=== PATIENT | female | born 1950 | race African-American/Black ===

== ENCOUNTER 2017-11-11 12:08 | Inpatient (IN) | payer OTHER ==
[2017-11-11 15:03] VITALS: BMI 44.6
--- NOTE | 2017-11-11 15:37 | HP ---
Admission [facility] Chief Complaint: I NEED HELP TO STAY IN REHAB FOR TO STOP USING COCAINE Allergies/Adverse Reactions: Allergies Allergy/AdvReac Type Severity Reaction Status Date / Time Sulfa (Sulfonamide Allergy Severe Verified 11/11/17 15:21 Antibiotics) History of Present Illness: THIS 67 YEARS OLD FEMALE WITH MARIJUANA DEPENDENCE,SEEKING HELP STOP USING COCAINE,LAST TREATMENT IN 2017 NOT SURE ABOUT FACILITY ALLERGIC TO SULFA Exam Limitations: No Limitations - Ebola screening Have you traveled outside of the country in the last 21 days: No Have you had contact with anyone from an Ebola affected area: No Have you been sick,other than usual withdrawal symptoms: No Do you have a fever: No - Review of Systems Constitutional: No Symptoms Reported EENT: reports: No Symptoms Reported Respiratory: reports: No Symptoms reported Cardiac: reports: No Symptoms Reported (CHF HSTORY) GI: reports: No Symptoms Reported : reports: No Symptoms Reported Musculoskeletal: reports: No Symptoms Reported Integumentary: reports: No Symptoms Reported Neuro: reports: No Symptoms reported Endocrine: reports: No Symptoms Reported Hematology: reports: No Symptoms Reported Psychiatric: reports: No Sypmtoms Reported, Judgement Intact, Mood/Affect Appropiate (SCHIZOPHRENIAS) Patient History - Patient Medical History Hx Anemia: No Hx Asthma: No Hx Chronic Obstructive Pulmonary Disease (COPD): Yes (ON MED) Hx Cancer: No Hx Cardiac Disorders: No Hx Congestive Heart Failure: Yes (ON MED) Hx Hypertension: Yes (ON MED) Hx Hypercholesterolemia: Yes (ON MED) Hx Pacemaker: No HX Cerebrovascular Accident: No Hx Seizures: No Hx Dementia: No Hx Diabetes: No Hx Gastrointestinal Disorders: No Hx Liver Disease: No Hx Genitourinary Disorders: No Hx Sexually Transmitted Disorders: No Hx Renal Disease (ESRD): No Hx Thyroid Disease: No Hx Human Immunodeficiency Virus (HIV): No (LAST 2012 NEGATIVE) Hx Hepatitis C: No Hx Depression: No Hx Suicide Attempt: No Hx Bipolar Disorder: No Hx Schizophrenia: Yes Other Medical History: NO SUICIDAL,NO HOMICIDAL,SLEEP APNEA - Patient Surgical History Past Surgical History: Yes Hx Orthopedic Surgery: Yes (LEFT KNEE REPLACEMENT IN 2011) - Reproductive History Patient is a Female of Child Bearing Age (11 -55 yrs old): No Patient : No - Smoking Cessation Smoking history: Never smoked - Substance & Tx. History Hx Alcohol Use: No Hx Substance Use: Yes Substance Use Type: Cocaine, Marijuana Hx Substance Use Treatment: Yes (2017 UNKNOWN FACILITY) - Substances Abused Cocaine Route: Inhalation Frequency: Daily Amount used: 1 BAG Age of first use: 14 Date of Last Use: 11/11/17 Family Disease History - Family Disease History Family History: Denies Admission Physical Exam [facility] - Vital Signs Vital Signs: Vital Signs - 24 hr 11/11/17 15:00 Temperature 96.4 F L Pulse Rate 96 H Respiratory 20 Rate Blood Pressure 131/77 - Physical General Appearance: Yes: Within Normal Limits HEENTM: Yes: Hearing grossly Normal, Normal ENT Inspection, SIOBHAN, Pharynx Normal Respiratory: Yes: Lungs Clear, Normal Breath Sounds, No Respiratory Distress Neck: Yes: Within Normal Limits, Supple, Trachea in good position Breast: Yes: Breast Exam Deferred Cardiology: Yes: Within Normal Limits, Regular Rhythm, Regular Rate, S1, S2 Abdominal: Yes: Within Normal Limits, Normal Bowel Sounds, Flat, Soft Genitourinary: Yes: Within Normal Limits Back: Yes: Within Normal Limits Musculoskeletal: Yes: Within Normal Limits Extremities: Yes: Within Normal Limits Neurological: Yes: Within Normal Limits, 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 intact, Fully Oriented, Alert Integumentary: Yes: Within Normal Limits Lymphatic: Yes: Within Normal Limits - Diagnostic (1) Cocaine dependence Current Visit: Yes Status: Acute (2) Hypertension Current Visit: Yes Status: Acute (3) Osteoarthritis of both knees Current Visit: Yes Status: Acute (4) History of left knee replacement Current Visit: Yes Status: Acute (5) COPD (chronic obstructive pulmonary disease) Current Visit: Yes Status: Acute (6) Sleep apnea Current Visit: Yes Status: Acute (7) Obesity Current Visit: Yes Status: Acute Cleared for Admission [facility] - Detox or Rehab Claeared for Rehab Admission: Yes [facility] Breath Alcohol Content Breath Alcohol Content: 0 Urine Pregancy Test - Result Urine Test Results: Negative- NO Line Present Urine Drug Screen - Results Drug Screen Negative: No Urine Drug Screen Results: BUBBA-Cocaine, OPI-Opiates Inpatient Rehab Admission - Initial Determination Are CD services needed?: Yes Free of communicable disease: Yes Not in need of hospitalization: Yes - Rehab Admission Criteria Previous failed treatment: Yes Poor recovery environment: Yes Comorbidities: Yes Lacks judgement: No Patient is meeting Inpatient Rehab admission criteria:: Yes
[2017-11-11] MEDS ORDERED: P-EPHED 60MG/TRIPROLIDI 2.5MG TABLET PO PRN (15:53)
[2017-11-11] MEDS ORDERED: IBUPROFEN 400 MG TABLET (FP) PO PRN (15:53)
[2017-11-11] MEDS ORDERED: MAGNESIUM CITRATE 300 ML BOTTLE PO PRN (15:53)
[2017-11-11] MEDS ORDERED: LOPERAMIDE HCL 2 MG CAPSULE PO PRN (15:53)
[2017-11-11] MEDS ORDERED: hydrOXYzine PAMOATE 25 MG CAPSULE (FP) PO PRN (15:53)
[2017-11-11] MEDS ORDERED: MENTHOL/PHENOL 1 EACH UD MM PRN (15:53)
[2017-11-11] MEDS ORDERED: MAGNESIUM HYDROX 2400MG/30ML ORAL SUSPENSION 30 ML CUP PO PRN (15:53)
[2017-11-11] MEDS ORDERED: PATIENT'S OWN MEDICATION (NON-FORMULARY) (Baclofen [Baclofen] 20 MG) PO PRN (15:57)
[2017-11-11 17:14] LABS: HEMATOCRIT 30.9 % (32.4-45.2); HEMOGLOBIN 9.8 GM/dL (10.7-15.3); MCHC 31.8 g/dl (32.0-36.0); MEAN CELL VOLUME 75.4 fl (80-96); MEAN PLT VOLUME 9.3 fl (7.5-11.1); PLATELET COUNT 344 K/MM3 (134-434); RDW 17.8 % (11.6-15.6); WHITE BLOOD COUNT 8.6 K/mm3 (4.0-10.0)
[2017-11-11 17:25] LABS: ALBUMIN 3.3 g/dl (3.4-5.0); ANION GAP 9 (8-16); BILIRUBIN,TOTAL 0.3 mg/dL (0.2-1.0); BLOOD UREA NITROGEN 13 mg/dL (7-18); CALCIUM 8.2 mg/dL (8.5-10.1); CHLORIDE 109 mmol/L (98-107); CO2 25 mmol/L (21-32); GLUCOSE,RANDOM 97 mg/dL (74-106); POTASSIUM 3.9 mmol/L (3.5-5.1); SGOT/AST 15 U/L (15-37); SGPT/ALT 14 U/L (12-78); SODIUM 143 mmol/L (136-145)
[2017-11-11 17:26] LABS: ALK PHOS 113 U/L (45-117); TOT PROT 7.4 g/dl (6.4-8.2)
[2017-11-11] MEDS ORDERED: ALBUTEROL SO4 18 GM HFA INHALER IH PRN (17:30)
[2017-11-11] MEDS ORDERED: TUBERCULIN PPD 5 TU/0.1ML VIAL ID ONE (17:37)
[2017-11-11] MEDS ORDERED: RANITIDINE HCL 150 MG TABLET (FP) PO ONE (18:30)
[2017-11-11] MEDS: THIAMINE HCL 100 MG TABLET (FP) PO SCH (21:53)
[2017-11-11] MEDS: ATORVASTATIN CA 20 MG TABLET (FP) PO SCH (21:53)
[2017-11-11] MEDS: MONTELUKAST NA 10 MG TABLET PO SCH (21:54)
[2017-11-11] MEDS: GABAPENTIN 300 MG CAPSULE (FP) PO SCH (21:54)
[2017-11-11] MEDS: BACLOFEN 10 MG TABLET (FP) PO SCH (21:54)
[2017-11-11] MEDS: IBUPROFEN 600 MG TABLET (FP) PO SCH (21:54)
[2017-11-11] MEDS: BUDESONIDE/FORMETEROL FUMARATE 160/4.5 mcg INHALER IH SCH (21:55)
[2017-11-11] MEDS ORDERED: PATIENT'S OWN MEDICATION (NON-FORMULARY) (Gabapentin [Gabapentin] 600 MG) PO SCH (22:00)
[2017-11-11 23:29] LABS: URINE APPEARANCE TURBID; URINE BILIRUBIN NEGATIVE (NEGATIVE); URINE BLOOD NEGATIVE (NEGATIVE); URINE COLOR YELLOW; URINE GLUCOSE (UA) NEGATIVE (NEGATIVE); URINE KETONE NEGATIVE (NEGATIVE); URINE LEUK ESTERASE TRACE (NEGATIVE); URINE NITRITE NEGATIVE (NEGATIVE); URINE UROBILINOGEN NEGATIVE mg/dL (0.2-1.0)
[2017-11-11 23:35] LABS: URINE PROTEIN 1+ (NEGATIVE)
[2017-11-11] MEDS ORDERED: PT OWN MED DRAWER 7, Y5N ONE (23:38)
[2017-11-11 23:39] LABS: EPI CELLS FEW /HPF (FEW); URINE BACTERIA FEW /hpf (NONE SEEN); URINE MUCUS RARE
[2017-11-12] MEDS: BACLOFEN 10 MG TABLET (FP) PO SCH ×3 (06:36→21:10)
[2017-11-12] MEDS: GABAPENTIN 300 MG CAPSULE (FP) PO SCH ×3 (06:36→21:10)
[2017-11-12] MEDS: ACETAMINOPHEN 325 MG TABLET (FP) PO PRN (06:37)
[2017-11-12] MEDS: ISOSORBIDE MONONITRATE 30 MG TAB.SR.24H (FP) PO SCH (09:23)
[2017-11-12] MEDS: PRENATAL VITAMINS W/ FOLIC ACID TABLET (FP) PO SCH (09:24)
[2017-11-12] MEDS: FUROSEMIDE 40 MG TABLET (FP) PO SCH (09:24)
[2017-11-12] MEDS: ENALAPRIL MALEATE 5 MG TABLET (FP) PO SCH (09:24)
[2017-11-12] MEDS: ASPIRIN 81 MG CHEWABLE TABLETS PO SCH (09:24)
[2017-11-12] MEDS: IBUPROFEN 600 MG TABLET (FP) PO SCH ×2 (09:24→21:10)
[2017-11-12] MEDS: BUDESONIDE/FORMETEROL FUMARATE 160/4.5 mcg INHALER IH SCH ×2 (09:25→21:09)
[2017-11-12] MEDS: ROFLUMILAST PO SCH (10:55)
--- NOTE | 2017-11-12 12:50 | PN ---
S Progress Note (SOAP) Subjective: I want to know about my labs Objective: 11/12/17 12:48 Laboratory Tests 11/11/17 11/11/17 11/11/17 16:00 16:00 16:00 WBC 8.6 RBC 4.10 Hgb 9.8 L Hct 30.9 L MCV 75.4 L MCH 24.0 L MCHC 31.8 L RDW 17.8 H Plt Count 344 MPV 9.3 Sodium 143 Potassium 3.9 Chloride 109 H Carbon Dioxide 25 Anion Gap 9 BUN 13 Creatinine 1.0 Creat Clearance w eGFR 54.97 Random Glucose 97 Calcium 8.2 L Total Bilirubin 0.3 AST 15 ALT 14 Alkaline Phosphatase 113 Total Protein 7.4 Albumin 3.3 L Urine Color Urine Appearance Urine pH Ur Specific [place] Urine Protein Urine Glucose (UA) Urine Ketones Urine Blood Urine Nitrite Urine Bilirubin Urine Urobilinogen Ur Leukocyte Esterase Urine WBC (Auto) Urine RBC (Auto) Ur Epithelial Cells Urine Bacteria Urine Mucus RPR Titer Nonreactive 11/11/17 23:05 WBC RBC Hgb Hct MCV MCH MCHC RDW Plt Count MPV Sodium Potassium Chloride Carbon Dioxide Anion Gap BUN Creatinine Creat Clearance w eGFR Random Glucose Calcium Total Bilirubin AST ALT Alkaline Phosphatase Total Protein Albumin Urine Color Yellow Urine Appearance Turbid Urine pH 5.0 Ur Specific [place] 1.028 Urine Protein 1+ H Urine Glucose (UA) Negative Urine Ketones Negative Urine Blood Negative Urine Nitrite Negative Urine Bilirubin Negative Urine Urobilinogen Negative Ur Leukocyte Esterase Trace Urine WBC (Auto) 44 Urine RBC (Auto) 2 Ur Epithelial Cells Few Urine Bacteria Few Urine Mucus Rare RPR Titer labs noted; iron sulfate 325mg TID ordered Assessment: 11/12/17 12:49 pt in agreement with new prescription Plan: iron sulfate ordered repeat labs
[2017-11-12] MEDS: ALBUTEROL SO4 18 GM HFA INHALER IH PRN (13:34)
[2017-11-12] MEDS ORDERED: ALBUTEROL SO4 2.5/IPRATROPIUM 0.5 INH SOL 3 ML VIAL.NEB. NEB PRN (14:32)
[2017-11-12] MEDS: FERROUS SO4 325 MG TABLET (FP) PO SCH (17:05)
[2017-11-12] MEDS: ATORVASTATIN CA 20 MG TABLET (FP) PO SCH ×2 (21:10→21:11)
[2017-11-12] MEDS: MONTELUKAST NA 10 MG TABLET PO SCH (21:10)
[2017-11-12] MEDS: THIAMINE HCL 100 MG TABLET (FP) PO SCH (21:11)
[2017-11-12] MEDS ORDERED: PATIENT'S OWN MEDICATION (NON-FORMULARY) (Aclidinium Bromide [Tudorza Pressair] 400 MCG) IH SCH (22:00)
[2017-11-13] MEDS: BACLOFEN 10 MG TABLET (FP) PO SCH ×3 (07:08→21:17)
[2017-11-13] MEDS: FERROUS SO4 325 MG TABLET (FP) PO SCH ×3 (07:08→17:15)
[2017-11-13] MEDS: GABAPENTIN 300 MG CAPSULE (FP) PO SCH ×3 (07:08→21:16)
[2017-11-13] MEDS: IBUPROFEN 600 MG TABLET (FP) PO SCH ×2 (10:02→21:18)
[2017-11-13] MEDS: ASPIRIN 81 MG CHEWABLE TABLETS PO SCH (10:02)
[2017-11-13] MEDS: PRENATAL VITAMINS W/ FOLIC ACID TABLET (FP) PO SCH (10:02)
[2017-11-13] MEDS: ISOSORBIDE MONONITRATE 30 MG TAB.SR.24H (FP) PO SCH (10:02)
[2017-11-13] MEDS: ENALAPRIL MALEATE 5 MG TABLET (FP) PO SCH (10:03)
[2017-11-13] MEDS: FUROSEMIDE 40 MG TABLET (FP) PO SCH (10:03)
[2017-11-13] MEDS: ROFLUMILAST PO SCH (10:04)
[2017-11-13] MEDS: TIOTROPIUM BROMIDE 18 MCG/INH (DEVICE W/ 5 CAPSULES) IH SCH (10:04)
[2017-11-13] MEDS: BUDESONIDE/FORMETEROL FUMARATE 160/4.5 mcg INHALER IH SCH ×2 (10:04→21:19)
[2017-11-13 10:32] LABS: BASO % 0.7 % (0-2.0); EOS % 4.4 % (0-4.5); HEMATOCRIT 30.8 % (32.4-45.2); HEMOGLOBIN 9.6 GM/dL (10.7-15.3); LYMPH % 39.1 % (8-40); MCH 23.2 pg (25.7-33.7); MCHC 31.1 g/dl (32.0-36.0); MEAN CELL VOLUME 74.6 fl (80-96); MEAN PLT VOLUME 9.3 fl (7.5-11.1); MONO % 8.5 % (3.8-10.2); NEUT % 47.3 % (42.8-82.8); PLATELET COUNT 341 K/MM3 (134-434); RBC 4.13 M/mm3 (3.60-5.2); RDW 17.5 % (11.6-15.6); WHITE BLOOD COUNT 8.3 K/mm3 (4.0-10.0)
--- NOTE | 2017-11-13 10:56 | EKG ---
Test Reason : Blood Pressure : / mmHG Vent. Rate : 093 BPM Atrial Rate : 093 BPM P-R Int : 174 ms QRS Dur : 098 ms QT Int : 364 ms P-R-T Axes : 071 047 070 degrees QTc Int : 452 ms NORMAL SINUS RHYTHM NONSPECIFIC T WAVE ABNORMALITY ABNORMAL ECG NO PREVIOUS ECGS AVAILABLE Confirmed by JE LAWLER MD ([id number]) on 11/13/2017 10:56:07 AM Referred By: Confirmed By:JE LAWLER MD
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
[2017-11-13] MEDS: MAG HYDROX/AL HYDROX/SIMETH 30 ML UNIT-DOSE CUP PO PRN (12:27)
--- NOTE | 2017-11-13 13:39 | PN ---
[facility] Progress Note (SOAP) Subjective: I have acid reflux and need pepcid or something for my acid reflux. Objective: 11/13/17 13:37 Laboratory Tests 11/11/17 11/11/17 11/11/17 16:00 16:00 16:00 WBC 8.6 RBC 4.10 Hgb 9.8 L Hct 30.9 L MCV 75.4 L MCH 24.0 L MCHC 31.8 L RDW 17.8 H Plt Count 344 MPV 9.3 Neutrophils % Lymphocytes % Monocytes % Eosinophils % Basophils % Sodium 143 Potassium 3.9 Chloride 109 H Carbon Dioxide 25 Anion Gap 9 BUN 13 Creatinine 1.0 Creat Clearance w eGFR 54.97 Random Glucose 97 Calcium 8.2 L Total Bilirubin 0.3 AST 15 ALT 14 Alkaline Phosphatase 113 Total Protein 7.4 Albumin 3.3 L Urine Color Urine Appearance Urine pH Ur Specific [place] Urine Protein Urine Glucose (UA) Urine Ketones Urine Blood Urine Nitrite Urine Bilirubin Urine Urobilinogen Ur Leukocyte Esterase Urine WBC (Auto) Urine RBC (Auto) Ur Epithelial Cells Urine Bacteria Urine Mucus RPR Titer Nonreactive 11/11/17 11/13/17 23:05 08:35 WBC 8.3 RBC 4.13 Hgb 9.6 L Hct 30.8 L MCV 74.6 L MCH 23.2 L MCHC 31.1 L RDW 17.5 H Plt Count 341 MPV 9.3 Neutrophils % 47.3 Lymphocytes % 39.1 Monocytes % 8.5 Eosinophils % 4.4 Basophils % 0.7 Sodium Potassium Chloride Carbon Dioxide Anion Gap BUN Creatinine Creat Clearance w eGFR Random Glucose Calcium Total Bilirubin AST ALT Alkaline Phosphatase Total Protein Albumin Urine Color Yellow Urine Appearance Turbid Urine pH 5.0 Ur Specific [place] 1.028 Urine Protein 1+ H Urine Glucose (UA) Negative Urine Ketones Negative Urine Blood Negative Urine Nitrite Negative Urine Bilirubin Negative Urine Urobilinogen Negative Ur Leukocyte Esterase Trace Urine WBC (Auto) 44 Urine RBC (Auto) 2 Ur Epithelial Cells Few Urine Bacteria Few Urine Mucus Rare RPR Titer repeat u/a continue iron supplement Assessment: 11/13/17 13:38 start protonix 40mg daily first dose now. Plan: will continue to f/u
[2017-11-13] MEDS: PANTOPRAZOLE 40 MG TABLET (FP) PO SCH (14:58)
[2017-11-13] MEDS ORDERED: PT OWN MED DRAWER 7, Y5N ONE (21:09)
[2017-11-13] MEDS: THIAMINE HCL 100 MG TABLET (FP) PO SCH (21:15)
[2017-11-13] MEDS: MONTELUKAST NA 10 MG TABLET PO SCH (21:16)
[2017-11-13] MEDS: ATORVASTATIN CA 20 MG TABLET (FP) PO SCH ×2 (21:17→21:18)
[2017-11-13] MEDS: risperiDONE 1 MG TABLET (FP) PO SCH (21:19)
[2017-11-14] MEDS: GABAPENTIN 300 MG CAPSULE (FP) PO SCH ×3 (07:09→21:17)
[2017-11-14] MEDS: BACLOFEN 10 MG TABLET (FP) PO SCH ×3 (07:09→21:17)
[2017-11-14] MEDS: FERROUS SO4 325 MG TABLET (FP) PO SCH ×3 (07:10→17:20)
[2017-11-14] MEDS ORDERED: PT OWN MED DRAWER 7, Y5N ONE (08:22)
[2017-11-14] MEDS: BUDESONIDE/FORMETEROL FUMARATE 160/4.5 mcg INHALER IH SCH ×2 (09:56→21:19)
[2017-11-14] MEDS: TIOTROPIUM BROMIDE 18 MCG/INH (DEVICE W/ 5 CAPSULES) IH SCH (09:56)
[2017-11-14] MEDS: FUROSEMIDE 40 MG TABLET (FP) PO SCH (09:57)
[2017-11-14] MEDS: IBUPROFEN 600 MG TABLET (FP) PO SCH ×2 (09:57→21:17)
[2017-11-14] MEDS: PANTOPRAZOLE 40 MG TABLET (FP) PO SCH (09:57)
[2017-11-14] MEDS: ENALAPRIL MALEATE 5 MG TABLET (FP) PO SCH (09:57)
[2017-11-14] MEDS: PRENATAL VITAMINS W/ FOLIC ACID TABLET (FP) PO SCH (09:57)
[2017-11-14] MEDS: ASPIRIN 81 MG CHEWABLE TABLETS PO SCH (09:57)
[2017-11-14] MEDS: ISOSORBIDE MONONITRATE 30 MG TAB.SR.24H (FP) PO SCH (09:57)
[2017-11-14] MEDS: ROFLUMILAST PO SCH (09:58)
--- NOTE | 2017-11-14 11:00 | PN ---
S Progress Note Note: u/a order repeated for increased WBC will f/u with results
[2017-11-14] MEDS: ALBUTEROL SO4 18 GM HFA INHALER IH PRN (11:22)
[2017-11-14] MEDS: ALBUTEROL SO4 0.083% IH SOL 2.5 MG/3 ML VIAL.NEB. NEB PRN (11:38)
[2017-11-14 15:27] LABS: URINE APPEARANCE CLEAR; URINE BILIRUBIN NEGATIVE (NEGATIVE); URINE BLOOD NEGATIVE (NEGATIVE); URINE COLOR STRAW; URINE GLUCOSE (UA) NEGATIVE (NEGATIVE); URINE KETONE NEGATIVE (NEGATIVE); URINE LEUK ESTERASE NEGATIVE (NEGATIVE); URINE NITRITE NEGATIVE (NEGATIVE); URINE PROTEIN NEGATIVE (NEGATIVE); URINE UROBILINOGEN NEGATIVE mg/dL (0.2-1.0)
[2017-11-14] MEDS: THIAMINE HCL 100 MG TABLET (FP) PO SCH (21:16)
[2017-11-14] MEDS: risperiDONE 1 MG TABLET (FP) PO SCH (21:17)
[2017-11-14] MEDS: MONTELUKAST NA 10 MG TABLET PO SCH (21:17)
[2017-11-14] MEDS: ATORVASTATIN CA 20 MG TABLET (FP) PO SCH ×2 (21:17→21:20)
[2017-11-14] MEDS: guaiFENesin/D-METHORPHAN HB 10 ML UNIT-DOSE CUPS PO PRN (23:06)
[2017-11-15] MEDS: GABAPENTIN 300 MG CAPSULE (FP) PO SCH ×3 (07:05→21:21)
[2017-11-15] MEDS: BACLOFEN 10 MG TABLET (FP) PO SCH ×3 (07:05→21:21)
[2017-11-15] MEDS: FERROUS SO4 325 MG TABLET (FP) PO SCH ×3 (07:06→17:30)
[2017-11-15] MEDS: PANTOPRAZOLE 40 MG TABLET (FP) PO SCH (10:12)
[2017-11-15] MEDS: ROFLUMILAST PO SCH (10:12)
[2017-11-15] MEDS: BUDESONIDE/FORMETEROL FUMARATE 160/4.5 mcg INHALER IH SCH ×2 (10:12→21:23)
[2017-11-15] MEDS: ASPIRIN 81 MG CHEWABLE TABLETS PO SCH (10:12)
[2017-11-15] MEDS: ISOSORBIDE MONONITRATE 30 MG TAB.SR.24H (FP) PO SCH (10:12)
[2017-11-15] MEDS: FUROSEMIDE 40 MG TABLET (FP) PO SCH (10:13)
[2017-11-15] MEDS: IBUPROFEN 600 MG TABLET (FP) PO SCH (10:13)
[2017-11-15] MEDS: ENALAPRIL MALEATE 5 MG TABLET (FP) PO SCH (10:13)
[2017-11-15] MEDS: PRENATAL VITAMINS W/ FOLIC ACID TABLET (FP) PO SCH (10:13)
[2017-11-15] MEDS: TIOTROPIUM BROMIDE 18 MCG/INH (DEVICE W/ 5 CAPSULES) IH SCH (10:13)
[2017-11-15] MEDS: guaiFENesin/D-METHORPHAN HB 10 ML UNIT-DOSE CUPS PO PRN ×2 (11:04→19:48)
--- NOTE | 2017-11-15 17:30 | PN ---
[facility] Progress Note (SOAP) Subjective: c/o burning rectal pain,has been refusing colonoscopy old pain, on outsdie refusing further work up Objective: 11/15/17 17:28 Vital Signs - 24 hr 11/15/17 11/15/17 11/15/17 00:30 03:30 07:38 Temperature 97.9 F Pulse Rate 85 Respiratory 20 20 20 Rate Blood Pressure 132/84 11/15/17 09:33 Temperature Pulse Rate 99 H Respiratory Rate Blood Pressure 121/75 Laboratory Tests 11/11/17 11/11/17 11/11/17 16:00 16:00 16:00 WBC 8.6 RBC 4.10 Hgb 9.8 L Hct 30.9 L MCV 75.4 L MCH 24.0 L MCHC 31.8 L RDW 17.8 H Plt Count 344 MPV 9.3 Neutrophils % Lymphocytes % Monocytes % Eosinophils % Basophils % Sodium 143 Potassium 3.9 Chloride 109 H Carbon Dioxide 25 Anion Gap 9 BUN 13 Creatinine 1.0 Creat Clearance w eGFR 54.97 Random Glucose 97 Calcium 8.2 L Total Bilirubin 0.3 AST 15 ALT 14 Alkaline Phosphatase 113 Total Protein 7.4 Albumin 3.3 L Urine Color Urine Appearance Urine pH Ur Specific [place] Urine Protein Urine Glucose (UA) Urine Ketones Urine Blood Urine Nitrite Urine Bilirubin Urine Urobilinogen Ur Leukocyte Esterase Urine WBC (Auto) Urine RBC (Auto) Ur Epithelial Cells Urine Bacteria Urine Mucus RPR Titer Nonreactive 11/11/17 11/13/17 11/14/17 23:05 08:35 12:20 WBC 8.3 RBC 4.13 Hgb 9.6 L Hct 30.8 L MCV 74.6 L MCH 23.2 L MCHC 31.1 L RDW 17.5 H Plt Count 341 MPV 9.3 Neutrophils % 47.3 Lymphocytes % 39.1 Monocytes % 8.5 Eosinophils % 4.4 Basophils % 0.7 Sodium Potassium Chloride Carbon Dioxide Anion Gap BUN Creatinine Creat Clearance w eGFR Random Glucose Calcium Total Bilirubin AST ALT Alkaline Phosphatase Total Protein Albumin Urine Color Yellow Straw Urine Appearance Turbid Clear Urine pH 5.0 6.0 Ur Specific [place] 1.028 1.010 Urine Protein 1+ H Negative Urine Glucose (UA) Negative Negative Urine Ketones Negative Negative Urine Blood Negative Negative Urine Nitrite Negative Negative Urine Bilirubin Negative Negative Urine Urobilinogen Negative Negative Ur Leukocyte Esterase Trace Negative Urine WBC (Auto) 44 Urine RBC (Auto) 2 Ur Epithelial Cells Few Urine Bacteria Few Urine Mucus Rare RPR Titer microcytic anemia, low alb Assessment: 11/15/17 17:29 anusol cream, f/u pcp when d/c home neesd work up for possible cancer patient aware. ferrous suolphate
[2017-11-15] MEDS: ALBUTEROL SO4 18 GM HFA INHALER IH PRN (19:49)
[2017-11-15] MEDS: risperiDONE 1 MG TABLET (FP) PO SCH (21:21)
[2017-11-15] MEDS: THIAMINE HCL 100 MG TABLET (FP) PO SCH (21:21)
[2017-11-15] MEDS: ATORVASTATIN CA 20 MG TABLET (FP) PO SCH ×2 (21:22)
[2017-11-15] MEDS: MONTELUKAST NA 10 MG TABLET PO SCH (21:23)
[2017-11-15] MEDS: DOCUSATE SODIUM 100 MG CAPSULE (FP) PO SCH (21:23)
[2017-11-15] MEDS: NAPROXEN 500 MG TABLET (FP) PO SCH (21:24)
[2017-11-15] MEDS: HYDROCORTISONE ACETATE 25 MG/SUPP.RECT PR SCH (21:25)
[2017-11-16] MEDS: BACLOFEN 10 MG TABLET (FP) PO SCH ×3 (07:05→21:10)
[2017-11-16] MEDS: FERROUS SO4 325 MG TABLET (FP) PO SCH ×3 (07:05→16:50)
[2017-11-16] MEDS: GABAPENTIN 300 MG CAPSULE (FP) PO SCH ×3 (07:05→21:10)
[2017-11-16] MEDS: ALBUTEROL SO4 18 GM HFA INHALER IH PRN ×2 (07:20→18:39)
[2017-11-16] MEDS: BUDESONIDE/FORMETEROL FUMARATE 160/4.5 mcg INHALER IH SCH ×2 (09:24→21:08)
[2017-11-16] MEDS: TIOTROPIUM BROMIDE 18 MCG/INH (DEVICE W/ 5 CAPSULES) IH SCH (09:25)
[2017-11-16] MEDS: NAPROXEN 500 MG TABLET (FP) PO SCH ×2 (09:26→21:10)
[2017-11-16] MEDS: ISOSORBIDE MONONITRATE 30 MG TAB.SR.24H (FP) PO SCH (09:26)
[2017-11-16] MEDS: PRENATAL VITAMINS W/ FOLIC ACID TABLET (FP) PO SCH (09:26)
[2017-11-16] MEDS: FUROSEMIDE 40 MG TABLET (FP) PO SCH (09:26)
[2017-11-16] MEDS: ROFLUMILAST PO SCH (09:26)
[2017-11-16] MEDS: ASPIRIN 81 MG CHEWABLE TABLETS PO SCH (09:27)
[2017-11-16] MEDS: ENALAPRIL MALEATE 5 MG TABLET (FP) PO SCH (09:27)
[2017-11-16] MEDS: PANTOPRAZOLE 40 MG TABLET (FP) PO SCH (09:27)
[2017-11-16] MEDS: ALBUTEROL SO4 0.083% IH SOL 2.5 MG/3 ML VIAL.NEB. NEB PRN ×3 (10:17→23:40)
[2017-11-16] MEDS: guaiFENesin/D-METHORPHAN HB 10 ML UNIT-DOSE CUPS PO PRN (13:21)
[2017-11-16] MEDS ORDERED: PT OWN MED DRAWER 7, Y5N ONE ×2 (19:13→22:19)
[2017-11-16] MEDS: HYDROCORTISONE ACETATE 25 MG/SUPP.RECT PR SCH (21:09)
[2017-11-16] MEDS: DOCUSATE SODIUM 100 MG CAPSULE (FP) PO SCH (21:09)
[2017-11-16] MEDS: MONTELUKAST NA 10 MG TABLET PO SCH (21:10)
[2017-11-16] MEDS: THIAMINE HCL 100 MG TABLET (FP) PO SCH (21:10)
[2017-11-16] MEDS: risperiDONE 1 MG TABLET (FP) PO SCH (21:10)
[2017-11-16] MEDS: ATORVASTATIN CA 20 MG TABLET (FP) PO SCH (21:10)
[2017-11-17] MEDS: guaiFENesin/D-METHORPHAN HB 10 ML UNIT-DOSE CUPS PO PRN (03:08)
[2017-11-17] MEDS ORDERED: PT OWN MED DRAWER 7, Y5N ONE ×2 (06:11→10:19)
[2017-11-17] MEDS: BACLOFEN 10 MG TABLET (FP) PO SCH ×3 (06:12→21:37)
[2017-11-17] MEDS: GABAPENTIN 300 MG CAPSULE (FP) PO SCH ×3 (06:12→21:38)
[2017-11-17] MEDS: ALBUTEROL SO4 18 GM HFA INHALER IH PRN (06:19)
[2017-11-17] MEDS: FERROUS SO4 325 MG TABLET (FP) PO SCH ×3 (07:48→17:54)
[2017-11-17] MEDS: TIOTROPIUM BROMIDE 18 MCG/INH (DEVICE W/ 5 CAPSULES) IH SCH (09:25)
[2017-11-17] MEDS: NAPROXEN 500 MG TABLET (FP) PO SCH ×2 (09:26→21:37)
[2017-11-17] MEDS: BUDESONIDE/FORMETEROL FUMARATE 160/4.5 mcg INHALER IH SCH ×2 (09:26→21:39)
[2017-11-17] MEDS: PANTOPRAZOLE 40 MG TABLET (FP) PO SCH (09:26)
[2017-11-17] MEDS: PRENATAL VITAMINS W/ FOLIC ACID TABLET (FP) PO SCH (09:26)
[2017-11-17] MEDS: ASPIRIN 81 MG CHEWABLE TABLETS PO SCH (09:26)
[2017-11-17] MEDS: ROFLUMILAST PO SCH (09:27)
[2017-11-17] MEDS: ENALAPRIL MALEATE 5 MG TABLET (FP) PO SCH (09:27)
[2017-11-17] MEDS: FUROSEMIDE 40 MG TABLET (FP) PO SCH (09:27)
[2017-11-17] MEDS: ISOSORBIDE MONONITRATE 30 MG TAB.SR.24H (FP) PO SCH (09:27)
[2017-11-17] MEDS: HYDROCORTISONE ACETATE 25 MG/SUPP.RECT PR SCH (21:36)
[2017-11-17] MEDS: DOCUSATE SODIUM 100 MG CAPSULE (FP) PO SCH (21:36)
[2017-11-17] MEDS: THIAMINE HCL 100 MG TABLET (FP) PO SCH (21:37)
[2017-11-17] MEDS: ATORVASTATIN CA 20 MG TABLET (FP) PO SCH (21:37)
[2017-11-17] MEDS: MONTELUKAST NA 10 MG TABLET PO SCH (21:38)
[2017-11-17] MEDS: risperiDONE 1 MG TABLET (FP) PO SCH (21:38)
[2017-11-18] MEDS: FERROUS SO4 325 MG TABLET (FP) PO SCH ×3 (07:10→17:20)
[2017-11-18] MEDS: BACLOFEN 10 MG TABLET (FP) PO SCH ×3 (07:10→21:21)
[2017-11-18] MEDS: GABAPENTIN 300 MG CAPSULE (FP) PO SCH ×3 (07:10→21:21)
[2017-11-18] MEDS: ALBUTEROL SO4 18 GM HFA INHALER IH PRN (07:11)
[2017-11-18] MEDS: ISOSORBIDE MONONITRATE 30 MG TAB.SR.24H (FP) PO SCH (10:03)
[2017-11-18] MEDS: ROFLUMILAST PO SCH (10:03)
[2017-11-18] MEDS: ASPIRIN 81 MG CHEWABLE TABLETS PO SCH (10:04)
[2017-11-18] MEDS: TIOTROPIUM BROMIDE 18 MCG/INH (DEVICE W/ 5 CAPSULES) IH SCH (10:04)
[2017-11-18] MEDS: PANTOPRAZOLE 40 MG TABLET (FP) PO SCH (10:04)
[2017-11-18] MEDS: NAPROXEN 500 MG TABLET (FP) PO SCH ×2 (10:04→21:21)
[2017-11-18] MEDS: BUDESONIDE/FORMETEROL FUMARATE 160/4.5 mcg INHALER IH SCH ×2 (10:04→21:22)
[2017-11-18] MEDS: PRENATAL VITAMINS W/ FOLIC ACID TABLET (FP) PO SCH (10:04)
[2017-11-18] MEDS: FUROSEMIDE 40 MG TABLET (FP) PO SCH (10:04)
[2017-11-18] MEDS: ENALAPRIL MALEATE 5 MG TABLET (FP) PO SCH (10:04)
[2017-11-18] MEDS: ALBUTEROL SO4 0.5 % INH SOLN 2.5 MG/0.5 ML VIAL.NEB. NEB PRN (10:07)
[2017-11-18] MEDS ORDERED: PT OWN MED DRAWER 7, Y5N ONE (13:42)
[2017-11-18] MEDS: LIDOCAINE 5% TOPICAL PATCH TP SCH (15:51)
[2017-11-18] MEDS: risperiDONE 1 MG TABLET (FP) PO SCH (21:21)
[2017-11-18] MEDS: THIAMINE HCL 100 MG TABLET (FP) PO SCH (21:21)
[2017-11-18] MEDS: ATORVASTATIN CA 20 MG TABLET (FP) PO SCH (21:21)
[2017-11-18] MEDS: MONTELUKAST NA 10 MG TABLET PO SCH (21:21)
[2017-11-18] MEDS: DOCUSATE SODIUM 100 MG CAPSULE (FP) PO SCH (21:21)
[2017-11-18] MEDS: LIDOCAINE PATCH REMOVAL MC SCH (21:23)
[2017-11-18] MEDS: HYDROCORTISONE ACETATE 25 MG/SUPP.RECT PR SCH (21:23)
[2017-11-19] MEDS: GABAPENTIN 300 MG CAPSULE (FP) PO SCH ×3 (06:52→21:29)
[2017-11-19] MEDS: BACLOFEN 10 MG TABLET (FP) PO SCH ×3 (06:52→21:29)
[2017-11-19] MEDS: FERROUS SO4 325 MG TABLET (FP) PO SCH ×3 (07:44→17:30)
[2017-11-19] MEDS: ASPIRIN 81 MG CHEWABLE TABLETS PO SCH (09:51)
[2017-11-19] MEDS: PANTOPRAZOLE 40 MG TABLET (FP) PO SCH (09:51)
[2017-11-19] MEDS: NAPROXEN 500 MG TABLET (FP) PO SCH ×2 (09:51→21:29)
[2017-11-19] MEDS: PRENATAL VITAMINS W/ FOLIC ACID TABLET (FP) PO SCH (09:51)
[2017-11-19] MEDS: FUROSEMIDE 40 MG TABLET (FP) PO SCH (09:52)
[2017-11-19] MEDS: TIOTROPIUM BROMIDE 18 MCG/INH (DEVICE W/ 5 CAPSULES) IH SCH (09:52)
[2017-11-19] MEDS: BUDESONIDE/FORMETEROL FUMARATE 160/4.5 mcg INHALER IH SCH ×2 (09:52→21:31)
[2017-11-19] MEDS: ISOSORBIDE MONONITRATE 30 MG TAB.SR.24H (FP) PO SCH (09:52)
[2017-11-19] MEDS: ENALAPRIL MALEATE 5 MG TABLET (FP) PO SCH (09:52)
[2017-11-19] MEDS: ROFLUMILAST PO SCH (09:52)
[2017-11-19] MEDS: LIDOCAINE 5% TOPICAL PATCH TP SCH (09:53)
[2017-11-19] MEDS ORDERED: PT OWN MED DRAWER 7, Y5N ONE (10:27)
[2017-11-19] MEDS: ALBUTEROL SO4 0.5 % INH SOLN 2.5 MG/0.5 ML VIAL.NEB. NEB PRN (11:07)
[2017-11-19] MEDS: ALBUTEROL SO4 18 GM HFA INHALER IH PRN (15:33)
[2017-11-19] MEDS: THIAMINE HCL 100 MG TABLET (FP) PO SCH (21:28)
[2017-11-19] MEDS: risperiDONE 1 MG TABLET (FP) PO SCH (21:29)
[2017-11-19] MEDS: MONTELUKAST NA 10 MG TABLET PO SCH (21:29)
[2017-11-19] MEDS: ATORVASTATIN CA 20 MG TABLET (FP) PO SCH (21:29)
[2017-11-19] MEDS: DOCUSATE SODIUM 100 MG CAPSULE (FP) PO SCH (21:31)
[2017-11-19] MEDS: HYDROCORTISONE ACETATE 25 MG/SUPP.RECT PR SCH (21:31)
[2017-11-19] MEDS: LIDOCAINE PATCH REMOVAL MC SCH (21:31)
[2017-11-19] MEDS: MAG HYDROX/AL HYDROX/SIMETH 30 ML UNIT-DOSE CUP PO PRN (23:18)
[2017-11-20] MEDS: GABAPENTIN 300 MG CAPSULE (FP) PO SCH ×3 (06:49→21:19)
[2017-11-20] MEDS: BACLOFEN 10 MG TABLET (FP) PO SCH ×3 (06:49→21:19)
[2017-11-20] MEDS: ALBUTEROL SO4 18 GM HFA INHALER IH PRN ×2 (06:52→13:23)
[2017-11-20] MEDS ORDERED: PT OWN MED DRAWER 7, Y5N ONE ×3 (06:53→13:22)
[2017-11-20] MEDS: FERROUS SO4 325 MG TABLET (FP) PO SCH ×3 (07:04→21:19)
[2017-11-20] MEDS: ENALAPRIL MALEATE 5 MG TABLET (FP) PO SCH (10:12)
[2017-11-20] MEDS: PRENATAL VITAMINS W/ FOLIC ACID TABLET (FP) PO SCH (10:12)
[2017-11-20] MEDS: ISOSORBIDE MONONITRATE 30 MG TAB.SR.24H (FP) PO SCH (10:12)
[2017-11-20] MEDS: FUROSEMIDE 40 MG TABLET (FP) PO SCH (10:12)
[2017-11-20] MEDS: TIOTROPIUM BROMIDE 18 MCG/INH (DEVICE W/ 5 CAPSULES) IH SCH (10:12)
[2017-11-20] MEDS: NAPROXEN 500 MG TABLET (FP) PO SCH ×2 (10:12→21:19)
[2017-11-20] MEDS: PANTOPRAZOLE 40 MG TABLET (FP) PO SCH (10:12)
[2017-11-20] MEDS: LIDOCAINE 5% TOPICAL PATCH TP SCH (10:13)
[2017-11-20] MEDS: ASPIRIN 81 MG CHEWABLE TABLETS PO SCH (10:13)
[2017-11-20] MEDS: ROFLUMILAST PO SCH (10:13)
[2017-11-20] MEDS: BUDESONIDE/FORMETEROL FUMARATE 160/4.5 mcg INHALER IH SCH ×2 (10:13→21:21)
[2017-11-20] MEDS: ALBUTEROL SO4 0.5 % INH SOLN 2.5 MG/0.5 ML VIAL.NEB. NEB PRN (13:23)
[2017-11-20] MEDS: MAG HYDROX/AL HYDROX/SIMETH 30 ML UNIT-DOSE CUP PO PRN (13:28)
[2017-11-20] MEDS ORDERED: ALBUTEROL SO4 0.083% IH SOL 2.5 MG/3 ML VIAL.NEB. NEB PRN (14:57)
[2017-11-20] MEDS: DOCUSATE SODIUM 100 MG CAPSULE (FP) PO SCH (21:19)
[2017-11-20] MEDS: risperiDONE 1 MG TABLET (FP) PO SCH (21:19)
[2017-11-20] MEDS: MONTELUKAST NA 10 MG TABLET PO SCH (21:19)
[2017-11-20] MEDS: THIAMINE HCL 100 MG TABLET (FP) PO SCH (21:21)
[2017-11-20] MEDS: LIDOCAINE PATCH REMOVAL MC SCH (21:21)
[2017-11-20] MEDS: ATORVASTATIN CA 20 MG TABLET (FP) PO SCH (21:21)
[2017-11-20] MEDS: HYDROCORTISONE ACETATE 25 MG/SUPP.RECT PR SCH (21:22)
[2017-11-21] MEDS: GABAPENTIN 300 MG CAPSULE (FP) PO SCH ×3 (07:01→21:58)
[2017-11-21] MEDS: FERROUS SO4 325 MG TABLET (FP) PO SCH ×3 (07:01→17:30)
[2017-11-21] MEDS: BACLOFEN 10 MG TABLET (FP) PO SCH ×3 (07:01→21:57)
[2017-11-21] MEDS: ALBUTEROL SO4 18 GM HFA INHALER IH PRN ×2 (08:27→13:03)
[2017-11-21] MEDS: TIOTROPIUM BROMIDE 18 MCG/INH (DEVICE W/ 5 CAPSULES) IH SCH (09:07)
[2017-11-21] MEDS: BUDESONIDE/FORMETEROL FUMARATE 160/4.5 mcg INHALER IH SCH ×2 (09:08→22:02)
[2017-11-21] MEDS: NAPROXEN 500 MG TABLET (FP) PO SCH ×2 (09:09→22:01)
[2017-11-21] MEDS: ROFLUMILAST PO SCH (09:09)
[2017-11-21] MEDS: ASPIRIN 81 MG CHEWABLE TABLETS PO SCH (09:09)
[2017-11-21] MEDS: PRENATAL VITAMINS W/ FOLIC ACID TABLET (FP) PO SCH (09:09)
[2017-11-21] MEDS: FUROSEMIDE 40 MG TABLET (FP) PO SCH (09:09)
[2017-11-21] MEDS: LIDOCAINE 5% TOPICAL PATCH TP SCH (09:10)
[2017-11-21] MEDS: ISOSORBIDE MONONITRATE 30 MG TAB.SR.24H (FP) PO SCH (09:10)
[2017-11-21] MEDS: ENALAPRIL MALEATE 5 MG TABLET (FP) PO SCH (09:10)
[2017-11-21] MEDS: PANTOPRAZOLE 40 MG TABLET (FP) PO SCH (09:10)
[2017-11-21] MEDS ORDERED: PT OWN MED DRAWER 7, Y5N ONE ×2 (10:42→23:32)
[2017-11-21] MEDS: ALBUTEROL SO4 0.083% IH SOL 2.5 MG/3 ML VIAL.NEB. NEB SCH ×3 (15:20→22:04)
[2017-11-21] MEDS: hydrALAZINE HCL 10 MG TABLET PO SCH ×2 (17:11→21:58)
--- NOTE | 2017-11-21 18:30 | PN ---
S Progress Note Note: Patient with nausea and vomiting. No apparent distress. one time order Tigan IM Increase fluids Vital signs Continue to monitor
[2017-11-21] MEDS ORDERED: TRIMETHOBENZAMIDE HCL 200MG/2ML INJ IM ONE ×2 (18:45→22:17)
[2017-11-21] MEDS: HYDROCORTISONE ACETATE 25 MG/SUPP.RECT PR SCH (21:55)
[2017-11-21] MEDS: THIAMINE HCL 100 MG TABLET (FP) PO SCH (21:57)
[2017-11-21] MEDS: LIDOCAINE PATCH REMOVAL MC SCH (21:58)
[2017-11-21] MEDS: risperiDONE 1 MG TABLET (FP) PO SCH (21:58)
[2017-11-21] MEDS: ATORVASTATIN CA 20 MG TABLET (FP) PO SCH (21:58)
[2017-11-21] MEDS: MONTELUKAST NA 10 MG TABLET PO SCH (22:02)
[2017-11-21] MEDS: RANITIDINE HCL 150 MG TABLET (FP) PO SCH (22:05)
--- NOTE | 2017-11-21 22:20 | PN ---
S Progress Note Note: nausea,vomiting Vital Signs Temperature 98.2 F 11/21/17 07:22 Pulse Rate 121 H 11/21/17 21:58 Respiratory Rate 20 11/21/17 21:58 Blood Pressure 137/83 11/21/17 21:58 O2 Sat by Pulse Oximetry (%) tigan 200 mgs im close monitoring
--- NOTE | 2017-11-21 22:55 | PN ---
[facility] Progress Note Note: called to evaluate patient with persistent diarrhea,nausea vomiting associated with abdominal pain obesity cocaine dependence osteoarthritis of both knees. abdomen soft,no distension,no guarding, tenderness of epigastrium swelling of lower extremities impression r/o gastroenteritis r/o pancreatitis obesity hypertension osteoarthritis of both knees treatment to [facility] for evaluation and treatment patient to be transported by [facility] spoke with dr mcintyre
[2017-11-22] MEDS: ALBUTEROL SO4 0.083% IH SOL 2.5 MG/3 ML VIAL.NEB. NEB SCH ×7 (02:15→22:15)
--- NOTE | 2017-11-22 05:36 | PN ---
Any Progress Note Note: patient is medically clear from [facility] er to return to rehab Vital Signs Temperature 98.7 F 11/22/17 05:15 Pulse Rate 98 H 11/22/17 05:15 Respiratory Rate 18 11/22/17 05:15 Blood Pressure 157/85 11/22/17 05:15 O2 Sat by Pulse Oximetry (%) to continue rehab regimen,monitoring,encourage oral fluid,have a pitcher of water at bedside close monitoring
[2017-11-22] MEDS ORDERED: PT OWN MED DRAWER 7, Y5N ONE ×5 (05:55→21:25)
[2017-11-22] MEDS: GABAPENTIN 300 MG CAPSULE (FP) PO SCH ×3 (06:49→21:20)
[2017-11-22] MEDS: BACLOFEN 10 MG TABLET (FP) PO SCH ×3 (06:49→21:20)
[2017-11-22] MEDS: hydrALAZINE HCL 10 MG TABLET PO SCH ×3 (06:50→21:20)
[2017-11-22] MEDS: FERROUS SO4 325 MG TABLET (FP) PO SCH ×3 (07:09→18:42)
[2017-11-22] MEDS: ACETAMINOPHEN 325 MG TABLET (FP) PO PRN (08:54)
[2017-11-22] MEDS: TIOTROPIUM BROMIDE 18 MCG/INH (DEVICE W/ 5 CAPSULES) IH SCH (10:18)
[2017-11-22] MEDS: NAPROXEN 500 MG TABLET (FP) PO SCH ×2 (10:18→21:20)
[2017-11-22] MEDS: PANTOPRAZOLE 40 MG TABLET (FP) PO SCH (10:19)
[2017-11-22] MEDS: ISOSORBIDE MONONITRATE 30 MG TAB.SR.24H (FP) PO SCH (10:19)
[2017-11-22] MEDS: ASPIRIN 81 MG CHEWABLE TABLETS PO SCH (10:19)
[2017-11-22] MEDS: LIDOCAINE 5% TOPICAL PATCH TP SCH (10:19)
[2017-11-22] MEDS: ENALAPRIL MALEATE 5 MG TABLET (FP) PO SCH (10:19)
[2017-11-22] MEDS: PRENATAL VITAMINS W/ FOLIC ACID TABLET (FP) PO SCH (10:19)
[2017-11-22] MEDS: FUROSEMIDE 40 MG TABLET (FP) PO SCH (10:19)
[2017-11-22] MEDS: ROFLUMILAST PO SCH (10:20)
[2017-11-22] MEDS: BUDESONIDE/FORMETEROL FUMARATE 160/4.5 mcg INHALER IH SCH ×2 (10:21→21:19)
[2017-11-22] MEDS: MAG HYDROX/AL HYDROX/SIMETH 30 ML UNIT-DOSE CUP PO PRN (12:10)
[2017-11-22] MEDS: MONTELUKAST NA 10 MG TABLET PO SCH (21:20)
[2017-11-22] MEDS: RANITIDINE HCL 150 MG TABLET (FP) PO SCH (21:20)
[2017-11-22] MEDS: ATORVASTATIN CA 20 MG TABLET (FP) PO SCH (21:20)
[2017-11-22] MEDS: risperiDONE 1 MG TABLET (FP) PO SCH (21:20)
[2017-11-22] MEDS: THIAMINE HCL 100 MG TABLET (FP) PO SCH (21:20)
[2017-11-22] MEDS: HYDROCORTISONE ACETATE 25 MG/SUPP.RECT PR SCH (21:20)
[2017-11-22] MEDS: ALBUTEROL SO4 18 GM HFA INHALER IH PRN (21:24)
[2017-11-22] MEDS: LIDOCAINE PATCH REMOVAL MC SCH (22:31)
[2017-11-23] MEDS: MAG HYDROX/AL HYDROX/SIMETH 30 ML UNIT-DOSE CUP PO PRN (01:36)
[2017-11-23] MEDS: ACETAMINOPHEN 325 MG TABLET (FP) PO PRN (01:48)
[2017-11-23] MEDS: ALBUTEROL SO4 0.083% IH SOL 2.5 MG/3 ML VIAL.NEB. NEB SCH ×5 (02:15→18:30)
[2017-11-23] MEDS: BACLOFEN 10 MG TABLET (FP) PO SCH ×3 (06:45→21:21)
[2017-11-23] MEDS: GABAPENTIN 300 MG CAPSULE (FP) PO SCH ×3 (06:45→21:21)
[2017-11-23] MEDS: hydrALAZINE HCL 10 MG TABLET PO SCH ×3 (06:45→21:21)
[2017-11-23] MEDS: FERROUS SO4 325 MG TABLET (FP) PO SCH ×3 (07:20→17:20)
[2017-11-23] MEDS: LIDOCAINE 5% TOPICAL PATCH TP SCH (09:54)
[2017-11-23] MEDS: ISOSORBIDE MONONITRATE 30 MG TAB.SR.24H (FP) PO SCH (09:54)
[2017-11-23] MEDS: TIOTROPIUM BROMIDE 18 MCG/INH (DEVICE W/ 5 CAPSULES) IH SCH (09:54)
[2017-11-23] MEDS: ASPIRIN 81 MG CHEWABLE TABLETS PO SCH (09:54)
[2017-11-23] MEDS: ENALAPRIL MALEATE 5 MG TABLET (FP) PO SCH (09:54)
[2017-11-23] MEDS: ROFLUMILAST PO SCH (09:54)
[2017-11-23] MEDS: NAPROXEN 500 MG TABLET (FP) PO SCH ×2 (09:54→21:21)
[2017-11-23] MEDS: BUDESONIDE/FORMETEROL FUMARATE 160/4.5 mcg INHALER IH SCH ×2 (09:54→21:20)
[2017-11-23] MEDS: FUROSEMIDE 40 MG TABLET (FP) PO SCH (09:54)
[2017-11-23] MEDS: PANTOPRAZOLE 40 MG TABLET (FP) PO SCH (09:54)
[2017-11-23] MEDS: PRENATAL VITAMINS W/ FOLIC ACID TABLET (FP) PO SCH (10:02)
[2017-11-23] MEDS: THIAMINE HCL 100 MG TABLET (FP) PO SCH (21:20)
[2017-11-23] MEDS: ATORVASTATIN CA 20 MG TABLET (FP) PO SCH (21:21)
[2017-11-23] MEDS: risperiDONE 1 MG TABLET (FP) PO SCH (21:21)
[2017-11-23] MEDS: RANITIDINE HCL 150 MG TABLET (FP) PO SCH (21:21)
[2017-11-23] MEDS: MONTELUKAST NA 10 MG TABLET PO SCH (21:21)
[2017-11-23] MEDS: LIDOCAINE PATCH REMOVAL MC SCH (21:22)
[2017-11-23] MEDS: HYDROCORTISONE ACETATE 25 MG/SUPP.RECT PR SCH (21:23)
[2017-11-23] MEDS ORDERED: PT OWN MED DRAWER 7, Y5N ONE (22:25)
[2017-11-24] MEDS: ALBUTEROL SO4 18 GM HFA INHALER IH PRN (05:46)
[2017-11-24] MEDS: ALBUTEROL SO4 0.083% IH SOL 2.5 MG/3 ML VIAL.NEB. NEB SCH ×7 (05:46→21:28)
[2017-11-24] MEDS: hydrALAZINE HCL 10 MG TABLET PO SCH ×3 (06:08→21:23)
[2017-11-24] MEDS: BACLOFEN 10 MG TABLET (FP) PO SCH ×3 (06:08→21:23)
[2017-11-24] MEDS: GABAPENTIN 300 MG CAPSULE (FP) PO SCH ×3 (06:08→21:23)
[2017-11-24] MEDS: FERROUS SO4 325 MG TABLET (FP) PO SCH ×3 (07:39→17:25)
[2017-11-24] MEDS ORDERED: PT OWN MED DRAWER 7, Y5N ONE ×7 (08:24→22:26)
[2017-11-24] MEDS: ROFLUMILAST PO SCH (10:00)
[2017-11-24] MEDS: ISOSORBIDE MONONITRATE 30 MG TAB.SR.24H (FP) PO SCH (10:00)
[2017-11-24] MEDS: BUDESONIDE/FORMETEROL FUMARATE 160/4.5 mcg INHALER IH SCH ×2 (10:00→21:26)
[2017-11-24] MEDS: LIDOCAINE 5% TOPICAL PATCH TP SCH (10:00)
[2017-11-24] MEDS: TIOTROPIUM BROMIDE 18 MCG/INH (DEVICE W/ 5 CAPSULES) IH SCH (10:01)
[2017-11-24] MEDS: NAPROXEN 500 MG TABLET (FP) PO SCH ×2 (10:01→21:23)
[2017-11-24] MEDS: ASPIRIN 81 MG CHEWABLE TABLETS PO SCH (10:01)
[2017-11-24] MEDS: PRENATAL VITAMINS W/ FOLIC ACID TABLET (FP) PO SCH (10:01)
[2017-11-24] MEDS: FUROSEMIDE 40 MG TABLET (FP) PO SCH (10:01)
[2017-11-24] MEDS: PANTOPRAZOLE 40 MG TABLET (FP) PO SCH (10:01)
[2017-11-24] MEDS: ENALAPRIL MALEATE 5 MG TABLET (FP) PO SCH (10:01)
--- NOTE | 2017-11-24 11:12 | EKG ---
Test Reason : Blood Pressure : / mmHG Vent. Rate : 086 BPM Atrial Rate : 086 BPM P-R Int : 168 ms QRS Dur : 098 ms QT Int : 398 ms P-R-T Axes : 061 019 039 degrees QTc Int : 476 ms NORMAL SINUS RHYTHM NORMAL ECG WHEN COMPARED WITH ECG OF 11-NOV-2017 18:54, NONSPECIFIC T WAVE ABNORMALITY NO LONGER EVIDENT IN LATERAL LEADS Confirmed by TRISTAN CAMPO, TYE ([id number]) on 11/24/2017 11:11:34 AM Referred By: Confirmed By:TYE HUDSON MD
[2017-11-24] MEDS: MAG HYDROX/AL HYDROX/SIMETH 30 ML UNIT-DOSE CUP PO PRN (17:12)
[2017-11-24] MEDS: ACETAMINOPHEN 325 MG TABLET (FP) PO PRN (17:53)
--- NOTE | 2017-11-24 18:14 | PN ---
S Progress Note Note: patient complained of pain in epigastrium on examination alert, no respiratory distress obesity heart normal heart sound,s1s2 abdomen soft,no distension,no tenderness chronic edema of right leg no calf tenderness [place]kg nsr,[place] [address],p96,r20,t98.1 pulse ox 96 impression epigastric pain improved with tylenol 650 mgs,mylanta 30 cc treatment closed monitoring
[2017-11-24] MEDS: RANITIDINE HCL 150 MG TABLET (FP) PO SCH (21:23)
[2017-11-24] MEDS: THIAMINE HCL 100 MG TABLET (FP) PO SCH (21:23)
[2017-11-24] MEDS: risperiDONE 1 MG TABLET (FP) PO SCH (21:23)
[2017-11-24] MEDS: MONTELUKAST NA 10 MG TABLET PO SCH (21:23)
[2017-11-24] MEDS: ATORVASTATIN CA 20 MG TABLET (FP) PO SCH (21:23)
[2017-11-24] MEDS: HYDROCORTISONE ACETATE 25 MG/SUPP.RECT PR SCH (21:26)
[2017-11-24] MEDS: LIDOCAINE PATCH REMOVAL MC SCH (21:26)
[2017-11-25] MEDS: ALBUTEROL SO4 0.083% IH SOL 2.5 MG/3 ML VIAL.NEB. NEB SCH ×6 (02:15→21:28)
[2017-11-25] MEDS: hydrALAZINE HCL 10 MG TABLET PO SCH ×3 (06:43→21:27)
[2017-11-25] MEDS: BACLOFEN 10 MG TABLET (FP) PO SCH ×3 (06:43→21:25)
[2017-11-25] MEDS: GABAPENTIN 300 MG CAPSULE (FP) PO SCH ×3 (06:43→21:25)
[2017-11-25] MEDS: FERROUS SO4 325 MG TABLET (FP) PO SCH ×3 (07:01→17:25)
[2017-11-25] MEDS: BUDESONIDE/FORMETEROL FUMARATE 160/4.5 mcg INHALER IH SCH ×2 (09:30→21:27)
[2017-11-25] MEDS: LIDOCAINE 5% TOPICAL PATCH TP SCH (09:34)
[2017-11-25] MEDS: PRENATAL VITAMINS W/ FOLIC ACID TABLET (FP) PO SCH (09:35)
[2017-11-25] MEDS: PANTOPRAZOLE 40 MG TABLET (FP) PO SCH (09:35)
[2017-11-25] MEDS: ISOSORBIDE MONONITRATE 30 MG TAB.SR.24H (FP) PO SCH (09:35)
[2017-11-25] MEDS: ENALAPRIL MALEATE 5 MG TABLET (FP) PO SCH (09:35)
[2017-11-25] MEDS: ASPIRIN 81 MG CHEWABLE TABLETS PO SCH (09:35)
[2017-11-25] MEDS: NAPROXEN 500 MG TABLET (FP) PO SCH ×2 (09:35→21:27)
[2017-11-25] MEDS: TIOTROPIUM BROMIDE 18 MCG/INH (DEVICE W/ 5 CAPSULES) IH SCH (09:35)
[2017-11-25] MEDS: FUROSEMIDE 40 MG TABLET (FP) PO SCH (09:35)
[2017-11-25] MEDS: ROFLUMILAST PO SCH (09:40)
[2017-11-25 12:10] LABS: ALBUMIN 3.3 g/dl (3.4-5.0); ALK PHOS 111 U/L (45-117); ANION GAP 7 (8-16); BILIRUBIN,TOTAL 0.3 mg/dL (0.2-1.0); BLOOD UREA NITROGEN 13 mg/dL (7-18); CALCIUM 8.6 mg/dL (8.5-10.1); CHLORIDE 107 mmol/L (98-107); CO2 27 mmol/L (21-32); CREATININE 0.8 mg/dL (0.55-1.02); GLUCOSE,RANDOM 92 mg/dL (74-106); POTASSIUM 3.9 mmol/L (3.5-5.1); SGOT/AST 22 U/L (15-37); SGPT/ALT 29 U/L (12-78); SODIUM 141 mmol/L (136-145)
[2017-11-25] MEDS ORDERED: PT OWN MED DRAWER 7, Y5N ONE (21:24)
[2017-11-25] MEDS: HYDROCORTISONE ACETATE 25 MG/SUPP.RECT PR SCH (21:24)
[2017-11-25] MEDS: THIAMINE HCL 100 MG TABLET (FP) PO SCH (21:24)
[2017-11-25] MEDS: risperiDONE 1 MG TABLET (FP) PO SCH (21:25)
[2017-11-25] MEDS: MONTELUKAST NA 10 MG TABLET PO SCH (21:25)
[2017-11-25] MEDS: LIDOCAINE PATCH REMOVAL MC SCH (21:25)
[2017-11-25] MEDS: ATORVASTATIN CA 20 MG TABLET (FP) PO SCH (21:25)
[2017-11-25] MEDS: RANITIDINE HCL 150 MG TABLET (FP) PO SCH (21:29)
--- NOTE | 2017-11-25 23:29 | EKG ---
Test Reason : Blood Pressure : / mmHG Vent. Rate : 091 BPM Atrial Rate : 091 BPM P-R Int : 162 ms QRS Dur : 096 ms QT Int : 388 ms P-R-T Axes : 061 036 038 degrees QTc Int : 477 ms NORMAL SINUS RHYTHM NORMAL ECG WHEN COMPARED WITH ECG OF 23-NOV-2017 01:22, NO SIGNIFICANT CHANGE WAS FOUND Confirmed by DELIA MENDEZ MD ([id number]) on 11/25/2017 11:28:48 PM Referred By: Confirmed By:DELIA MENDEZ MD
[2017-11-26] MEDS: BACLOFEN 10 MG TABLET (FP) PO SCH (06:38)
[2017-11-26] MEDS: hydrALAZINE HCL 10 MG TABLET PO SCH (06:38)
[2017-11-26] MEDS: GABAPENTIN 300 MG CAPSULE (FP) PO SCH (06:38)
[2017-11-26 06:57] VITALS: TEMP 98
[2017-11-26] MEDS: FERROUS SO4 325 MG TABLET (FP) PO SCH (07:09)
[2017-11-26] MEDS ORDERED: PT OWN MED DRAWER 7, Y5N ONE (08:28)
[2017-11-26] MEDS: ROFLUMILAST PO SCH (09:39)
[2017-11-26] MEDS: TIOTROPIUM BROMIDE 18 MCG/INH (DEVICE W/ 5 CAPSULES) IH SCH (09:39)
[2017-11-26] MEDS: ASPIRIN 81 MG CHEWABLE TABLETS PO SCH (09:39)
[2017-11-26] MEDS: NAPROXEN 500 MG TABLET (FP) PO SCH (09:40)
[2017-11-26] MEDS: ENALAPRIL MALEATE 5 MG TABLET (FP) PO SCH (09:40)
[2017-11-26] MEDS: FUROSEMIDE 40 MG TABLET (FP) PO SCH (09:40)
[2017-11-26] MEDS: PANTOPRAZOLE 40 MG TABLET (FP) PO SCH (09:40)
[2017-11-26] MEDS: PRENATAL VITAMINS W/ FOLIC ACID TABLET (FP) PO SCH (09:40)
[2017-11-26] MEDS: LIDOCAINE 5% TOPICAL PATCH TP SCH (09:40)
[2017-11-26] MEDS: ISOSORBIDE MONONITRATE 30 MG TAB.SR.24H (FP) PO SCH (09:41)
[2017-11-26] MEDS: BUDESONIDE/FORMETEROL FUMARATE 160/4.5 mcg INHALER IH SCH (09:41)
[2017-11-26] MEDS: ALBUTEROL SO4 0.083% IH SOL 2.5 MG/3 ML VIAL.NEB. NEB SCH (09:42)
[2017-11-26 09:52] VITALS: BP 135/82; PULSE 95
--- NOTE | 2017-11-26 10:33 | PN ---
Psychiatric Progress Note Vital Signs: Vital Signs Period Temp Pulse Resp BP Sys/Perkins Pulse Ox Last 24 Hr 98.0 F 91-95 -18 117-143/71-82 Date of Session: 11/26/17 Chief Complaint:: discharge visit HPI: Patient has addressed cocaine dependence comorbid schizophrenia. ROS: HTN,COPD,asthma,osteoarthritis,,left knee replacement and high cholesterol medically managed. Current Medications: Active Medications Generic Name Dose Route Start Last Admin Trade Name Freq PRN Reason Stop Dose Admin Acetaminophen 650 mg 11/11/17 15:53 11/24/17 17:53 Tylenol - PO 650 mg Q4H PRN Administration FEVER Al Hydroxide/Mg Hydroxide 30 ml 11/11/17 15:53 11/24/17 17:12 Mylanta Oral Suspension - PO 30 ml Q6H PRN Administration DYSPEPSIA Albuterol Sulfate 2 puff 11/11/17 23:41 11/24/17 05:46 Ventolin Hfa Inhaler - IH 2 puff Q4H PRN Administration SHORT OF BREATH/WHEEZING Albuterol Sulfate 1 amp 11/21/17 14:15 11/26/17 09:42 Ventolin 0.083% Nebulizer Soln - NEB 1 amp Q4H LEAH Administration Aspirin 81 mg 11/12/17 10:00 11/26/17 09:39 Asa - PO 81 mg DAILY LEAH Administration Atorvastatin Calcium 20 mg 11/12/17 22:00 11/25/17 21:25 Lipitor - PO 20 mg HS LEAH Administration Baclofen 20 mg 11/11/17 22:00 11/26/17 06:38 Lioresal - PO 20 mg TID LEAH Administration Budesonide/Formoterol Fumarate 2 puff 11/11/17 22:00 11/26/17 09:41 Symbicort 160/4.5mcg - IH 2 inh BID LEAH Administration Enalapril Maleate 5 mg 11/12/17 10:00 11/26/17 09:40 Vasotec - PO 5 mg DAILY LEAH Administration Eucalyptus/Menthol/Phenol/Sorbitol 1 each 11/11/17 15:53 Cepastat Lozenge - MM Q4H PRN SORE THROAT Ferrous Sulfate 325 mg 11/12/17 17:30 11/26/17 07:09 Feosol - PO 325 mg TIDCM LEAH Administration Furosemide 40 mg 11/12/17 10:00 11/26/17 09:40 Lasix - PO 40 mg DAILY LEAH Administration Gabapentin 600 mg 11/11/17 22:00 11/26/17 06:38 Neurontin - PO 600 mg TID LEAH Administration Guaifenesin 10 ml 11/11/17 15:53 11/17/17 03:08 Robitussin Dm - PO 10 ml Q6H PRN Administration COUGH Hydralazine HCl 10 mg 11/21/17 14:45 11/26/17 06:38 Apresoline - PO 10 mg TID LAEH Administration Hydrocortisone Acetate 25 mg 11/15/17 22:00 11/25/17 21:24 Anusol Hc Suppository - NC 25 mg HS LEAH Administration Hydroxyzine Pamoate 25 mg 11/11/17 15:53 Vistaril - PO Q4H PRN AGITATION Isosorbide Mononitrate 30 mg 11/12/17 10:00 11/26/17 09:41 Imdur - PO 30 mg DAILY LEAH Administration Lidocaine 2 patch 11/18/17 14:30 11/26/17 09:40 Lidoderm Patch - TP 2 patch DAILY LEAH Administration Loperamide HCl 4 mg 11/11/17 15:53 11/24/17 06:07 Imodium - PO 4 mg Q6H PRN Administration DIARRHEA Magnesium Citrate 300 ml 11/11/17 15:53 Citroma - PO Q48H PRN CONSTIPATION Magnesium Hydroxide 30 ml 11/11/17 15:53 Milk Of Magnesia - PO DAILY PRN CONSTIPATION Miscellaneous 2 each 11/18/17 22:00 11/25/17 21:25 Lidoderm Patch Removal MC 2 each DAILY@2200 LEAH Administration Montelukast Sodium 10 mg 11/11/17 22:00 11/25/17 21:25 Singulair - PO 10 mg HS LEAH Administration Naproxen 500 mg 11/15/17 22:00 11/26/17 09:40 Naprosyn - PO 500 mg BID LEAH Administration Non-Formulary Medication 500 mcg 11/12/17 10:00 11/26/17 09:39 Roflumilast [Daliresp -] PO 500 mcg DAILY LEAH Administration Pantoprazole Sodium 40 mg 11/13/17 14:00 11/26/17 09:40 Protonix - PO 40 mg DAILY LEAH Administration Multivit/Folic Acid/Iron 1 tab 11/12/17 10:00 11/26/17 09:40 Vitamins (Sjr) - PO 1 tab DAILY LEAH Administration Pseudoephedrine/Triprolidine 1 combo 11/11/17 15:53 11/14/17 14:11 Actifed - PO 1 combo TID PRN Administration NASAL CONGESTION Ranitidine HCl 300 mg 11/21/17 22:00 11/25/17 21:29 Zantac - PO 300 mg HS LEAH Administration Risperidone 1 mg 11/13/17 22:00 11/25/17 21:25 Risperdal - PO 1 mg HS LEAH Administration Thiamine HCl 100 mg 11/11/17 22:00 11/25/17 21:24 Vitamin B1 - PO 100 mg HS LEAH Administration Tiotropium [place] 1 puff 11/13/17 10:00 11/26/17 09:39 Spiriva - IH 1 puff DAILY LEAH Administration Current Side Effect: No Lab tests ordered: No Lab tests reviewed: Yes Provider note:: Patient has completed today her treatment and met her identified goals, will continue to address issues at [facility] opd. She gained insight into importance of changing behavior and utilize all supports to prevent relapses. Risperdal well tolerated, scripts provided by . Patient is stable for discharge today. Total face to face time:: 15 Mental Status Exam - Mental Status Exam Alert and Oriented to: Time, Place, Person Cognitive Function: Good Patient Appearance: Well Groomed Mood: Hopeful Affect: Mood Congruent Patient Behavior: Appropriate, Cooperative Speech Pattern: Clear, Appropriate Voice Loudness: Normal Thought Process: Goal Oriented Thought Disorder: Not Present Hallucinations: Denies Suicidal Ideation: Denies Homicidal Ideation: Denies Insight/Judgement: Fair Sleep: Fair Appetite: Fair Muscle strength/Tone: Normal Gait/Station: Other (in wheelchair) Psychiatric Treatment Plan - Problem List (1) COPD (chronic obstructive pulmonary disease) Current Visit: Yes (2) Chronic paranoid schizophrenia Current Visit: Yes (3) Cocaine dependence Current Visit: Yes (4) Hypertension Current Visit: Yes (5) Osteoarthritis of both knees Current Visit: Yes
== END 2017-11-26 10:12 | disposition home or self-care (01) | DRG 895 ==
LOC: YASAS 12:08 → Y3E 16:17
PROVIDERS: ADMIT Psychiatry & Neurology Psychiatry; ATTEND Psychiatry & Neurology Psychiatry
PROC: HZ42ZZZ Group Counseling for Substance Abuse Treatment, Cognitive-Behavioral (ICD-10-PCS; principal; 2017-11-11)
DX: F14.20 Cocaine dependence, uncomplicated (principal); F20.0 Paranoid schizophrenia; Z68.41 Body mass index [BMI] 40.0-44.9, adult; I50.9 Heart failure, unspecified; I10 Essential (primary) hypertension; J44.9 Chronic obstructive pulmonary disease, unspecified; D50.9 Iron deficiency anemia, unspecified; M17.0 Bilateral primary osteoarthritis of knee; E78.00 Pure hypercholesterolemia, unspecified; J45.909 Unspecified asthma, uncomplicated; G47.30 Sleep apnea, unspecified; K52.9 Noninfective gastroenteritis and colitis, unspecified; E66.9 Obesity, unspecified; Z96.652 Presence of left artificial knee joint; Z88.2 Allergy status to sulfonamides
CPT/HCPCS: 36415; 80053; 81003; 81015; 85025; 85027; 86593; 93005; 93010; 94640; J0475; J2794

== ENCOUNTER 2017-11-21 23:54 | Emergency (ER) | payer OTHER ==
--- NOTE | 2017-11-22 00:34 | PDOC ---
History of Present Illness - General History Source: Patient Exam Limitations: No Limitations - History of Present Illness Initial Comments: 11/22/17 00:51 The patient is a 67 year old female, with a significant past medical history of hypertension, hyperlipidemia, substance abuse (cocaine), who presents to the emergency department from [facility] for evaluation of nausea, vomiting and diarrhea. The patient reports that after lunch today the nausea with vomiting and diarrhea began. The patient reports she is currently in detox for cocaine abuse and states the last time she used cocaine was on November 10. The patient also reports recent chills, cough, dysuria, mild shortness of breath and runny nose. The patient reports recent lower extremity swelling bilaterally over the past four days. She denies recent fevers, headache or dizziness. She denies recent frequency, urgency or hematuria. She denies recent chest pain. Allergies: Sulfa (Sulfonamide Antibiotics) Past surgical history: None reported. Social history: Nonsmoker. Reports occasional EtOH use. Reports past cocaine drug use. <Umair Gomez - Last Filed: 11/22/17 01:59> <Kerry Jurado - Last Filed: 11/22/17 02:05> - General Stated Complaint: PAIN Time Seen by Provider: 11/22/17 00:19 Past History <Umair Gomez - Last Filed: 11/22/17 01:59> - Past Medical History Anemia: No Asthma: No Cancer: No Cardiac Disorders: No CVA: No COPD: Yes (ON MED) CHF: Yes (ON MED) Dementia: No Diabetes: No GI Disorders: No Disorders: No HTN: Yes (ON MED) Hypercholesterolemia: Yes (ON MED) Kidney Stones: No Liver Disease: No Seizures: No Thyroid Disease: No - Surgical History Orthopedic Surgery: Yes (LEFT KNEE REPLACEMENT IN 2012) - Reproductive History PID: No - Suicide/Smoking/Psychosocial Hx Smoking History: Never smoked Hx Alcohol Use: No Drug/Substance Use Hx: Yes (reports using cocaine since 14 yo,on and off, recently daily use) Substance Use Type: Cocaine Hx Substance Use Treatment: Yes (completed inpatient rehabilitation for about 1 year ago) <Kerry Jurado - Last Filed: 11/22/17 02:05> - Past Medical History Allergies/Adverse Reactions: Allergies Allergy/AdvReac Type Severity Reaction Status Date / Time Sulfa (Sulfonamide Allergy Severe Verified 11/22/17 00:44 Antibiotics) Home Medications: Ambulatory Orders Acetaminophen with Codeine [Tylenol with Codeine #3 Tablet] 1 each PO Q12H PRN 11/11/17 Aclidinium [place] [Tudorza Pressair] 400 mcg IH BID 11/11/17 Albuterol Sulfate Inhaler - [Ventolin HFA Inhaler -] 2 puff IH Q4H PRN 11/11/17 Aspirin [ASA -] 81 mg PO DAILY 11/11/17 Baclofen 20 mg PO TID PRN 11/11/17 Budesonide/Formeterol Fumarate [SYMBICORT 160/4.5mcg -] 1 inh PO BID 11/11/17 Enalapril Maleate [Vasotec -] 5 mg PO DAILY 11/11/17 Famotidine [Pepcid -] 40 mg PO DAILY 11/11/17 Folic Acid - 1 mg PO DAILY 11/11/17 Furosemide [Lasix -] 40 mg PO DAILY 11/11/17 Gabapentin 600 mg PO TID 11/11/17 Ibuprofen [Motrin -] 600 mg PO BID 11/11/17 Isosorbide Mononitrate [Imdur -] 30 mg PO DAILY 11/11/17 Montelukast Na [Singulair -] 10 mg PO HS 11/11/17 Multivit/Iron/FA/K/Herb No.244 [[employer]ive [employer] Mv Tablet] 1 each PO DAILY 11/11/17 Risperidone [Risperdal -] 1 mg PO DAILY 11/11/17 Roflumilast [Daliresp -] 500 mcg PO DAILY 11/11/17 Simvastatin [Zocor -] 40 mg PO HS 11/11/17 hydrALAZINE HCL [Apresoline -] 10 mg PO TID 11/11/17 Tiotropium [place] [Spiriva] 1 inh IH DAILY 11/12/17 Review of Systems - Review of Systems Comments:: 11/22/17 00:53 GENERAL/CONSTITUTIONAL: +Chills. No fever. No weakness. HEAD, EYES, EARS, NOSE AND THROAT: No change in vision. No ear pain or discharge. No sore throat. GASTROINTESTINAL: +Nausea. +Vomiting. +Diarrhea. No constipation. GENITOURINARY: +Dysuria. No frequency, or change in urination. CARDIOVASCULAR: +Shortness of breath. No chest pain. RESPIRATORY: +Cough. No wheezing, or hemoptysis. MUSCULOSKELETAL: No joint or muscle swelling or pain. No neck or back pain. SKIN: No rash NEUROLOGIC: No headache, vertigo, loss of consciousness, or change in strength/ sensation. ENDOCRINE: No increased thirst. No abnormal weight change. HEMATOLOGIC/LYMPHATIC: No anemia, easy bleeding, or history of blood clots. ALLERGIC/IMMUNOLOGIC: No hives or skin allergy. <Umair Gomez - Last Filed: 11/22/17 01:59> *Physical Exam - Vital Signs Last Vital Signs Temp Pulse Resp BP Pulse Ox 98.7 F 98 H 20 142/89 99 11/21/17 23:58 11/21/17 23:58 11/21/17 23:58 11/21/17 23:58 11/21/17 23:58 - Physical Exam Comments: 11/22/17 01:59 Constitutional: +Morbidly obese. Awake, alert, oriented. No acute distress. Head: Normocephalic. Atraumatic Eyes: PERRL. EOMI. Conjunctivae are not pale. ENT: Mucous membranes are moist and intact. Posterior pharynx without exudates or erythema. Uvula midline. Neck: Supple. Full ROM. No lymphadenopathy. Cardiovascular: Regular rate. Regular rhythm. S1, S2 regular. Distal pulses are 2+ and symmetric. Pulmonary/Chest: +Mild tachypnea. No evidence of respiratory distress. Clear to auscultation bilaterally No wheezing, rales or rhonchi. Abdominal: +Right upper quadrant tenderness. +Suprapubic tenderness. + Epigastric tenderness. Soft. No rebound, guarding or rigidity. No organomegaly. No palpable masses. Good bowel sounds. Back: No CVA tenderness. Musculoskeletal: +Trace edema in the legs bilaterally. No cyanosis. No clubbing. Full range of motion in all extremities. No calf tenderness. Radial/ pedal pulses are intact and 2+ bilaterally Skin: Skin is warm and dry. No petechiae. No purpura. Neurological: Alert and oriented to person, place, and time. Cranial nerves II -XII are grossly intact. Normal speech. Strength is grossly symmetric. No sensory deficits. Psychiatric: Good eye contact. Normal interaction, affect and behavior. <Umair Gomez - Last Filed: 11/22/17 01:59> ED Treatment Course - RADIOLOGY Radiograph Interpretation: 11/22/17 01:37 EXAM: Bilateral lower extremity duplex venous ultrasound HISTORY: Swelling COMPARISON: None. FINDINGS: Negative for right or left lower extremity deep venous thrombosis. Reported by Nate Schmidt MD 11/22/17 01:39 EXAM: Right upper quadrant abdominal ultrasound HISTORY: Pain nausea vomiting COMPARISON: None. FINDINGS: Fatty borderline enlarged liver. Normal gallbladder. No gallstones. No pericholecystic fluid or gallbladder wall thickening. Common bile duct normal at 5.3 mm. No right hydronephrosis. No right upper quadrant free fluid. Echogenic pancreas. Possibly fatty. Reported by Nate Schmidt MD <Umair Gomez - Last Filed: 11/22/17 01:59> Medical Decision Making - Medical Decision Making 11/22/17 01:08 a/p: 67yo female presents from [facility] for eval of n/v/diarrhea that started today -c/o cp with vomiting -c/o sob - started on o2 today -c/o leg edema -concern for poss chf vs acs vs pancreatitis vs acute nay vs gastroenteritis -labs -ekg -cxr -dopplers of legs -RUQ u/s to r/o biliary disease -pt is morbidly obese -will give nausea and gi meds -will monitor and reassess -if workup negative, [facility] has agreed to allow the patient to return for continued rehab from Cocaine use. -no cocaine use since 11/10/17 11/22/17 02:05 pt will be signed out to the oncoming ED physician pending labs and further eval <Kerry Jurado - Last Filed: 11/22/17 02:05> *DC/Admit/Observation/Transfer - Attestations Scribe Attestion: 11/22/17 00:54 Documentation prepared by Umair Gomez, acting as medical assistant ob gyn for Kerry Jurado DO. <Umair Gomez - Last Filed: 11/22/17 01:59> - Attestations Physician Attestion: 11/22/17 02:05 I, Dr. Kerry Jurado DO, attest that this document has been prepared under my direction and personally reviewed by me in its entirety. I further attest, that it accurately reflects all work, treatment, procedures and medical decision -making performed by me. <Kerry Jurado - Last Filed: 11/22/17 02:05> Diagnosis at time of Disposition: Obesity, Nausea & vomiting, Diarrhea - Discharge Dispostion Condition at time of disposition: Stable
[2017-11-22] MEDS ORDERED: FAMOTIDINE 20 MG/50 ML IVPB 20 MG/50 ML MG IVPB ONE ×2 (00:35→03:00)
[2017-11-22] MEDS ORDERED: ACETAMINOPHEN 1000 MG/100 ML VIAL (NON FORMULARY) IVPB ONE (00:35)
[2017-11-22] MEDS ORDERED: ONDANSETRON 4 MG/2 ML VIAL IVPUSH ONE (00:35)
[2017-11-22 00:46] VITALS: BP 142/89; PULSE 98; TEMP 98.7; BMI 34.3
[2017-11-22] MEDS ORDERED: ONDANSETRON 4 MG/2 ML VIAL ONE (03:00)
[2017-11-22] MEDS ORDERED: ACETAMINOPHEN INJECTION 100 ML IVPB ONE (03:00)
[2017-11-22 03:01] LABS: BASO % 0.4 % (0-2.0); EOS % 1.1 % (0-4.5); HEMATOCRIT 28.4 % (32.4-45.2); LYMPH % 15.1 % (8-40); MCH 23.3 pg (25.7-33.7); MCHC 31.5 g/dl (32.0-36.0); MEAN CELL VOLUME 73.8 fl (80-96); MEAN PLT VOLUME 8.8 fl (7.5-11.1); MONO % 7.9 % (3.8-10.2); NEUT % 75.5 % (42.8-82.8); PLATELET COUNT 368 K/MM3 (134-434); RBC 3.85 M/mm3 (3.60-5.2); RDW 17.7 % (11.6-15.6); WHITE BLOOD COUNT 8.1 K/mm3 (4.0-10.0)
[2017-11-22 03:13] LABS: INR 1.15 (0.82-1.09)
[2017-11-22 03:16] LABS: ACTIVATED PTT 46.2 SECONDS (26.9-34.4)
[2017-11-22 03:20] LABS: URINE APPEARANCE CLEAR; URINE BILIRUBIN NEGATIVE (NEGATIVE); URINE BLOOD NEGATIVE (NEGATIVE); URINE COLOR LTYELLOW; URINE GLUCOSE (UA) NEGATIVE (NEGATIVE); URINE KETONE NEGATIVE (NEGATIVE); URINE LEUK ESTERASE NEGATIVE (NEGATIVE); URINE NITRITE NEGATIVE (NEGATIVE); URINE PROTEIN NEGATIVE (NEGATIVE); URINE UROBILINOGEN NEGATIVE mg/dL (0.2-1.0)
[2017-11-22 03:24] LABS: ALBUMIN 2.8 g/dl (3.4-5.0); ANION GAP 9 (8-16); BILIRUBIN,TOTAL 0.2 mg/dL (0.2-1.0); BLOOD UREA NITROGEN 14 mg/dL (7-18); CALCIUM 8.3 mg/dL (8.5-10.1); CHLORIDE 106 mmol/L (98-107); CO2 27 mmol/L (21-32); CREATININE 0.7 mg/dL (0.55-1.02); GLUCOSE,RANDOM 92 mg/dL (74-106); LIPASE 145 U/L (73-393); MAGNESIUM 2.2 mg/dL (1.8-2.4); SGOT/AST 29 U/L (15-37); SGPT/ALT 26 U/L (12-78); SODIUM 142 mmol/L (136-145); TOT PROT 6.7 g/dl (6.4-8.2)
[2017-11-22 03:27] LABS: ALK PHOS 109 U/L (45-117)
--- NOTE | 2017-11-22 04:01 | PDOC ---
*Physical Exam - Vital Signs Last Vital Signs Temp Pulse Resp BP Pulse Ox 98.7 F 98 H 20 142/89 99 11/21/17 23:58 11/21/17 23:58 11/21/17 23:58 11/21/17 23:58 11/21/17 23:58 ED Treatment Course - LABORATORY CBC & Chemistry Diagram: 11/22/17 02:35 11/22/17 02:35 - ADDITIONAL ORDERS Additional order review: Laboratory Results 11/22/17 11/22/17 11/22/17 02:46 02:35 02:35 PT with INR 13.00 H INR 1.15 H PTT (Actin FS) 46.2 H Sodium 142 Potassium 4.0 Chloride 106 Carbon Dioxide 27 Anion Gap 9 BUN 14 Creatinine 0.7 Creat Clearance w eGFR > 60 Random Glucose 92 Calcium 8.3 L Magnesium 2.2 Total Bilirubin 0.2 D AST 29 ALT 26 Alkaline Phosphatase 109 Creatine Kinase 178 Troponin I < 0.02 Total Protein 6.7 Albumin 2.8 L Lipase 145 Urine Color Ltyellow Urine Appearance Clear Urine pH 7.0 Ur Specific [place] [employer] 1.016 Urine Protein Negative Urine Glucose (UA) Negative Urine Ketones Negative Urine Blood Negative Urine Nitrite Negative Urine Bilirubin Negative Urine Urobilinogen Negative Ur Leukocyte Esterase Negative 11/22/17 02:35 RBC 3.85 MCV 73.8 L MCHC 31.5 L RDW 17.7 H MPV 8.8 Neutrophils % 75.5 D Lymphocytes % 15.1 D Monocytes % 7.9 Eosinophils % 1.1 Basophils % 0.4 - Medications Given in the ED: ED Medications Discontinued Medications Generic Name Dose Route Start Last Admin Trade Name Debbie PRN Reason Stop Dose Admin Acetaminophen 1,000 mg 11/22/17 00:35 11/22/17 03:11 Ofirmev Injection - IVPB 11/22/17 00:36 1,000 mg ONCE ONE Administration Famotidine/Sodium Chloride 20 mg in 50 mls @ 100 mls/hr 11/22/17 00:35 03:11 Pepcid 20 Mg Premixed Ivpb - IVPB 11/22/17 01:04 100 mls/hr ONCE ONE Administration Ondansetron HCl 4 mg 11/22/17 00:35 11/22/17 03:11 Zofran Injection IVPUSH 11/22/17 00:36 4 mg ONCE ONE Administration Medical Decision Making - Medical Decision Making 11/22/17 04:00 Pt to return to [facility]. Spoke to Dr. Ness. Pt to return [facility] *DC/Admit/Observation/Transfer Diagnosis at time of Disposition: Obesity, Nausea & vomiting, Diarrhea - Discharge Dispostion Disposition: HOME Condition at time of disposition: Stable Admit: No - Referrals - Patient Instructions Printed Discharge Instructions: Nausea and Vomiting-Adult, Diarrhea Additional Instructions: Drink plenty of fluids. bland diet. Return if any problems - Post Discharge Activity
== END 2017-11-22 04:40 | disposition home or self-care (01) ==
LOC: JER 23:54
PROC: 3E033GC Introduction of Other Therapeutic Substance into Peripheral Vein, Percutaneous Approach (ICD-10-PCS; principal; 2017-11-21)
PROC: 3E033NZ Introduction of Analgesics, Hypnotics, Sedatives into Peripheral Vein, Percutaneous Approach (ICD-10-PCS; 2017-11-21)
PROC: 3E033GC Introduction of Other Therapeutic Substance into Peripheral Vein, Percutaneous Approach (ICD-10-PCS; 2017-11-21)
DX: R11.2 Nausea with vomiting, unspecified (principal); R19.7 Diarrhea, unspecified; E66.9 Obesity, unspecified; Z68.34 Body mass index [BMI] 34.0-34.9, adult; J44.9 Chronic obstructive pulmonary disease, unspecified; I10 Essential (primary) hypertension; I50.9 Heart failure, unspecified; E78.00 Pure hypercholesterolemia, unspecified; F14.20 Cocaine dependence, uncomplicated
CPT/HCPCS: 36415; 71045-TC-FY; 76705-TC; 80053; 81003; 82550; 82553; 83690; 83735; 83880; 84484; 85025; 85610; 85730; 87086; 93970-TC; 99283-25